=== PATIENT | male | born 1960 | race Hispanic/Latino ===

== ENCOUNTER → 2017-11-24 | Outpatient (CLI) | payer MEDICARE ==
--- NOTE | 2017-11-25 00:13 | Cat Scan Report ---
FINAL REPORT EXAM: CT LUMBAR SPINE WO CON HISTORY: LOWER BACK PAIN TECHNIQUE: Helical images of the lumbar spine were obtained. Images are reconstructed in the sagittal and coronal planes. PRIORS: None. FINDINGS: The lumbar vertebral bodies have normal height and alignment and lumbar lordosis is preserved. The paraspinous soft tissues are unremarkable. There an aorto bi-iliac stent in place, incompletely evaluated. T 12-L1 and L1-L2: No disc bulge or protrusion. The facet joints appear well preserved. No spinal or foraminal stenosis. L2-L3: Small circumferential disc bulge. Moderate bilateral facet hypertrophy. No spinal or foraminal stenosis. L3-L4: Small circumferential disc bulge. Moderate bilateral facet hypertrophy. No spinal or foraminal stenosis. L4-L5: There is a small broad-based posterior disc bulge. There is a small lateral syndesmophyte along the left side of the disc that encroaches on the left neural foramen. Severe bilateral facet hypertrophy greater on the left than the right. There is severe left neural foraminal stenosis and mild spinal stenosis. L5-S1: Large broad-based posterior disc bulge. Large right posterior lateral syndesmophyte formation that encroaches upon the right neural foramen. Associated vacuum disc. Moderate right and mild left facet hypertrophy. Severe right neural foraminal narrowing. No spinal stenosis. IMPRESSION: 1. Multilevel degenerative disc disease 2. At L4-5 there is a left lateral syndesmophyte associated with left facet hypertrophy resulting in severe left neural foraminal narrowing. 3. At L5-S1 there is a large right posterior lateral syndesmophyte with associated facet hypertrophy resulting in severe right neural foraminal narrowing.
== END | disposition home or self-care (01) ==
LOC: CT 12:14
PROVIDERS: ATTEND Internal Medicine
DX: M47.896 Other spondylosis, lumbar region (principal); M48.061 Spinal stenosis, lumbar region without neurogenic claudication; M51.26 Other intervertebral disc displacement, lumbar region
CPT/HCPCS: 72131

== ENCOUNTER 2020-02-01 13:08 | Outpatient (CLI) | payer MEDICARE ==
--- NOTE | 2020-02-01 14:40 | XRay Report ---
RIGHT SHOULDER 3 VIEWS INDICATION / CLINICAL INFORMATION: RIGHT SHOULDER PAIN. COMPARISON: None available. FINDINGS: No significant skeletal abnormality Signer Name: Carlos Fuller MD FACR Signed: 02/01/2020 2:35 PM Workstation Name: [id number]
== END 2020-02-01 13:09 | disposition home or self-care (01) ==
LOC: XRAY 13:08
PROVIDERS: ATTEND Orthopaedic Surgery
DX: M25.511 Pain in right shoulder (principal)